=== PATIENT | female | born 1995 | race Caucasian/White ===

== ENCOUNTER → 2017-03-08 | Outpatient (CLI) | payer OTHER | LOC: BRMIMAGING 15:17 | PROVIDERS: ATTEND Internal Medicine | DX: M79.641 Pain in right hand (principal); M25.551 Pain in right hip; M79.642 Pain in left hand; M25.552 Pain in left hip; M54.9 Dorsalgia, unspecified | CPT/HCPCS: 72202-PO; 73130-PO; 73521-PO ==

== ENCOUNTER → 2017-07-20 | Outpatient (CLI) | payer OTHER | LOC: FLAB 13:38 | PROVIDERS: ATTEND Physician Assistant | DX: J40 Bronchitis, not specified as acute or chronic (principal) ==